=== PATIENT | male | born 1975 | race Caucasian/White ===

== ENCOUNTER 2020-07-28 20:39 | Observation (INO) | payer OTHER, SELFPAY ==
[2020-07-28] VITALS (28 sets, daily range): BP systolic 134–164; BP diastolic 83–116; PULSE 100–145; RESP 16–25; TEMP 35.9–37.1; O2SAT 94–100
--- NOTE | ~2020-07-28 | XR_ITS ---
EXAMINATION: XR chest 1V portable DATE: 07/28/2020 21:45 INDICATION: Shortness of breath and palpitations TECHNIQUE: frontal view of the chest was obtained. COMPARISON: None FINDINGS: The lungs are clear with no focal airspace opacities, pulmonary edema, pleural effusion or pneumothor ax. The cardiomediastinal silhouette is normal. Visualized bones and soft tissues are unremarkable. IMPRESSION: 1. No acute cardiopulmonary disease. Reviewed, dictated and finalized at location A.
--- NOTE | 2020-07-28 20:43 | ECG_ITS ---
Measurements Intervals [place] Rate: 144 P: [place]: 0 QRS: -7 QRSD: 93 T: 5 QT: 290 QTc: 449 Interpretive Statements SINUS TACHYCARDIA DELAYED PRECORDIAL R/S TRANSITION BASELINE ARTIFACT- II, III, AVF, V3-V6 ABNORMAL ECG Electronically Signed On 07-29-2020 6:51:36 CDT by Eulalio Hooper D.O.
[2020-07-28] MEDS: dilTIAZem HCl INJ 25 MG/5 ML VIAL 10 MG IV PUSH ×2 (21:36→22:44)
[2020-07-28] MEDS: ASPIRIN 81 MG CHEWABLE TABLET 324 MG PO (21:39)
[2020-07-28 21:49] LABS: Basophils Absolute Auto 0.2 K/mm3 (0.0-0.1); Basophils Percent Auto 1.6 % (0.2-1.2); Eosinophils Absolute Auto 0.1 K/mm3 (0-0.3); Eosinophils Percent Auto 0.5 % (0-4.4); Hematocrit 43.1 % (42.0-52.0); Hemoglobin 15.3 g/dL (14.0-18.0); Immature Granulocyte Absolute 0.06 K/mm3 (0.00-0.031); Immature Granulocyte Percent A 0.6 % (0-0.5); Lymphocytes Absolute Auto 1.89 K/mm3 (0.9-3.2); Lymphocytes Percent Auto 18.3 % (18.3-44.2); Mean Corpuscular HGB Conc 35.5 g/dl (32-36); Mean Corpuscular Hemoglobin 31.2 pg (26-34); Mean Corpuscular Volume 87.8 fl (80-100); Mean Platelet Volume 10.2 fl (7.4-10.4); Monocytes Absolute Auto 0.9 K/mm3 (0.1-0.6); Monocytes Percent Auto 8.7 % (2.6-8.5); Neutrophils Absolute Auto 7.3 K/mm3 (1.3-6.7); Neutrophils Percent Auto 70.3 % (45.5-73.1); Platelet Count Result 205 k/mm3 (150-375); Red Blood Count 4.91 M/mm3 (4.6-6.20); Red Cell Distribution Width 12.2 % (11.5-14.5); White Blood Count 10.3 K/mm3 (4.5-10.0)
[2020-07-28 21:57] LABS: Prothrombin Time 13.5 Seconds (11.1-14.7)
[2020-07-28 21:58] LABS: Partial Thromboplastin Time 32.5 SECONDS (22.3-36.8)
[2020-07-28 21:59] LABS: Alanine Aminotransferase 107 U/L (4-50); Albumin Level 4.7 g/dL (3.5-5.1); Alkaline Phosphatase 95 U/L (38-126); Anion Gap 9 mmol/L (8-16); Aspartate Amino Transferase 131 U/L (17-59); Bilirubin,Total 0.7 mg/dL (0.2-1.3); Blood Urea Nitrogen 16 mg/dL (9-20); Calcium 9.9 mg/dL (8.4-10.2); Carbon Dioxide 29 mmol/L (22-30); Chloride 102 mmol/L (98-107); Estimated CRCL calculation 118 ml/min; Estimated Glomerular Filt Rate > 60; Glucose 138 mg/dL (75-110); Potassium 3.5 mmol/L (3.4-5.0); Sodium 140 mmol/L (137-145)
[2020-07-28 22:11] LABS: NT Pro B Type Natriuretic Pept 70 pg/mL (5-100); Troponin I < 0.012 ng/mL (0.000-0.034)
--- NOTE | 2020-07-28 22:56 | PC.NURSE ---
Per EDP Lipsmeyer via verbal order read-back, increase Cardizem to 15mg/hr.
--- NOTE | 2020-07-28 23:05 | ECG_ITS ---
Measurements Intervals [place] Rate: 106 P: -3 [place]: 148 QRS: -8 QRSD: 90 T: 0 QT: 318 QTc: 423 Interpretive Statements SINUS TACHYCARDIA VOLTAGE CRITERIA FOR LVH BORDERLINE T WAVE ABNORMALITY- INFERIOR LEADS BASELINE ARTIFACT- II, III, AVF, V3-V6 ABNORMAL ECG Electronically Signed On 07-29-2020 6:54:55 CDT by Eulalio Hooper D.O.
[2020-07-28] MEDS: SODIUM CHLORIDE 0.9% IV 1,000 ML 999 ML IV CONT (23:28)
[2020-07-29] VITALS (20 sets, daily range): BP systolic 121–159; BP diastolic 72–90; PULSE 74–108; RESP 14–22; TEMP 37–37.1; O2SAT 94–98; BMI 34.0
--- NOTE | 2020-07-29 | ECHO_ITS ---
Patient Info Name: Jeevan Ness Age: 45 years : 1975 Gender: Male Ht: 73 in Wt: 257 lbs BSA: 2.49 m2 HR: 82 bpm BP: 121 / 72 mmHg Technical Quality: Good Exam Date: 07/29/2020 8:45 AM Exam Location: [facility] Patient Status: Outpatient Admit Date: 07/29/2020 Staff Ordering Physician: Stewart Maya MD Respiratory Therapist Assistant: Isac Gray RDCS, RT Attending Provider: Sangeeta Gorman PA-C Exam Type: CA echo doppler color flow Study Info Indications I48.1 - Persistent atrial fibrillation Complete two-dimensional, color flow and Doppler transthoracic echocardiogram is performed. Strain analysis performed. Summary 1. Complete two-dimensional, color flow and Doppler transthoracic echocardiogram is performed. 2. Left ventricular wall thickness is borderline increased. 3. Left ventricular chamber dimension is normal. 4. Left atrial chamber dimension is mildly enlarged. 5. Technically difficult study with limited views. 6. Left ventricular systolic function is normal with an estimated ejection fraction of 6065.0 %. 7. Right ventricular chamber dimension is mildly enlarged. 8. Right atrial chamber dimension is mildly enlarged. 9. The mitral valve has thickened leaflets. Left Ventricle Left ventricular wall thickness is borderline increased. Left ventricular chamber dimension is normal. Left ventricular systolic function is normal with an estimated ejection fraction of 6065.0 %. Normal diastolic function for age. Right Ventricle Right ventricular chamber dimension is mildly enlarged. Right ventricular systolic function is normal. Left Atria Left atrial chamber dimension is mildly enlarged. Right Atria Right atrial chamber dimension is mildly enlarged. Aortic Valve Aortic valve is not well visualized. Pulmonic Valve Pulmonary valve is not well visualized. Mitral Valve The mitral valve has thickened leaflets. Tricuspid Valve The tricuspid valve is structurally and functionally normal by two-dimensional, color flow Doppler and Doppler interrogation. Pericardium/Pleural Pericardium is normal in appearance with no evidence for significant pericardial effusion. Left Ventricular Outflow Tract Name Value Normal LVOT 2D LVOT Diameter 2.0 cm LVOT Doppler LVOT Peak Gradient 5 mmHg LVOT Mean Gradient 3 mmHg LVOT VTI 22 cm LVOT VTI/AV VTI Ratio 0.8 LVOT Stroke Volume 67 ml LVOT CO 5.4 l/min LVOT CI 2.2 l/min/m2 Mitral Valve Name Value Normal MV Doppler MV Decel Edmunds 451 cm/s2 MV PHT 42 ms MV Area (PHT) 5.2 cm2 4.0-5.0 M
--- NOTE | 2020-07-29 00:11 | ED.GENADULT ---
HPI - General Adult General Chief complaint: Arrhythmia/Palpitations Stated complaint: palpations Time Seen by Provider: 07/28/20 21:24 History of Present Illness HPI narrative: Patient is a 45-year-old gentleman who presents the emergency department with chief complaint of palpitations. Patient reports he was out walking his dog and had sudden onset where his heart started beating fast patient reports his heart rate was between 100 1560 bpm. Patient denied chest pain but did state he felt a little short of breath when this happened patient states it is more short of breath when her get up and walk. Upon arrival to the emergency department the patient still had a heart rate between 140 and 150. Patient states that resting comfortably on the stretcher he is not short of breath. Patient denies any travel denies any prior history of dysrhythmia or other medical problems other than hypertension. Related Data Home Medications Medication Instructions Recorded Confirmed amlodipine 07/28/20 benazepril 07/28/20 meloxicam 07/28/20 metoprolol succinate PO 07/28/20 spironolactone 07/28/20 Allergies Allergy/AdvReac Type Severity Reaction Status Date / Time No Known Allergies Allergy Unverified 03/14/16 12:29 Review of Systems Review of Systems: Narrative: A 10 system review of systems was completed on the patient and is negative except for what is stated in the HPI. Nursing and ancillary documentation was reviewed. PMFSH Comments Past medical history significant for hypertension Social history the patient reports to 1-2 caffeinated beverages per day denies energy drink use or other stimulant use Exam Narrative: Exam Narrative: GENERAL: Well-appearing, well-nourished, and in no acute distress. HEAD: Normocephalic, atraumatic. EYES: PERRLA and EOMI. ENT: Nares clear, no rhinorrhea or epistaxis. Mucous membranes moist. NECK: Supple. CHEST: Clear to auscultation. No respiratory distress. HEART: Regular rate and rhythm. No murmur heard. Normal peripheral pulses. ABDOMEN: Soft, nontender, nondistended, normal active bowel sounds. EXTREMITIES: Normal range of motion. No edema. SKIN: Warm, dry, no rash. NEURO: No focal deficits. Alert and oriented x3. PSYCH: Normal mood and affect. Course Course Emergency Course: Initial EKG showed a narrow complex tachycardia with a rate of 144 concerning for a flutter. After the patient has been on a Cardizem drip he is currently in a sinus tachycardia with a rate of 106 Vital Signs Vital signs: Vital Signs Temperature 35.9 C L 07/28/20 20:46 Pulse Rate 145 H 07/28/20 20:46 Respiratory Rate 18 07/28/20 20:46 Blood Pressure 164/104 H 07/28/20 20:46 Pulse Oximetry 100 07/28/20 20:46 Temperature 37.1 C 07/28/20 20:51 Pulse Rate 118 H 07/28/20 22:55 Respiratory Rate 23 H 07/28/20 22:31 Blood Pressure 140/84 07/28/20 22:55 Pulse Oximetry 94 07/28/20 22:31 Medical Decision Making Vital Signs Vital Signs: Vital Signs Temperature 35.9 C L 07/28/20 20:46 Pulse Rate 145 H 07/28/20 20:46 Respiratory Rate 18 07/28/20 20:46 Blood Pressure 164/104 H 07/28/20 20:46 Pulse Oximetry 100 07/28/20 20:46 Temperature 37.1 C 07/28/20 20:51 Pulse Rate 118 H 07/28/20 22:55 Respiratory Rate 23 H 07/28/20 22:31 Blood Pressure 140/84 07/28/20 22:55 Pulse Oximetry 94 07/28/20 22:31 Lab Data Result diagrams: 07/28/20 21:34 07/28/20 21:34 Labs: Lab Results 07/28/20 07/28/20 07/28/20 Range/Units 21:34 21:34 21:34 WBC 10.3 H (4.5-10.0) K/mm3 RBC 4.91 (4.6-6.20) M/mm3 Hgb 15.3 (14.0-18.0) g/dL Hct 43.1 (42.0-52.0) % MCV 87.8 (80-100) fl MCH 31.2 (26-34) pg MCHC 35.5 (32-36) g/dl RDW 12.2 (11.5-14.5) % Plt Count 205 (150-375) k/mm3 MPV 10.2 (7.4-10.4) fl Immature Gran % (Auto) 0.6 H (0-0.5) % Neut % (Auto) 70.3 (45.5-73.1) % Lym
--- NOTE | 2020-07-29 01:52 | ADMGEN ---
This patient, Jeevan Ness, was admitted to IMU Room 202-01. Patient/family oriented to hospital policies and general routines including ID bracelet, bed and alarms, visiting hours, pain management, procedures, bathroom and other care routines, personal items, smoking policy, room service/diet, and visiting hours. Information on how to activate the Rapid Response Team has been discussed. Patient/Family are encouraged to report perceived risks to care and to ask questions if they do not understand what they are told or what they should do. Leighton MOORE arrived [id number]
[2020-07-29] MEDS: SODIUM CHLORIDE 0.9% IV 1,000 ML 125 ML IV CONT (02:21)
[2020-07-29 03:48] LABS: Troponin I < 0.012 ng/mL (0.000-0.034)
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
[2020-07-29 06:29] LABS: Basophils Absolute Auto 0.1 K/mm3 (0.0-0.1); Basophils Percent Auto 1.2 % (0.2-1.2); Eosinophils Absolute Auto 0.1 K/mm3 (0-0.3); Eosinophils Percent Auto 1.2 % (0-4.4); Hematocrit 36.2 % (42.0-52.0); Hemoglobin 12.9 g/dL (14.0-18.0); Immature Granulocyte Absolute 0.04 K/mm3 (0.00-0.031); Immature Granulocyte Percent A 0.5 % (0-0.5); Lymphocytes Absolute Auto 2.16 K/mm3 (0.9-3.2); Lymphocytes Percent Auto 26.5 % (18.3-44.2); Mean Corpuscular HGB Conc 35.6 g/dl (32-36); Mean Platelet Volume 10.1 fl (7.4-10.4); Monocytes Percent Auto 12.3 % (2.6-8.5); Neutrophils Absolute Auto 4.8 K/mm3 (1.3-6.7); Neutrophils Percent Auto 58.3 % (45.5-73.1); Platelet Count Result 175 k/mm3 (150-375); Red Blood Count 4.16 M/mm3 (4.6-6.20); Red Cell Distribution Width 12.3 % (11.5-14.5); White Blood Count 8.2 K/mm3 (4.5-10.0)
[2020-07-29 06:43] LABS: Alanine Aminotransferase 71 U/L (4-50); Albumin Level 3.8 g/dL (3.5-5.1); Alkaline Phosphatase 69 U/L (38-126); Anion Gap 3 mmol/L (8-16); Aspartate Amino Transferase 75 U/L (17-59); Bilirubin,Total 0.6 mg/dL (0.2-1.3); Blood Urea Nitrogen 19 mg/dL (9-20); Calcium 8.6 mg/dL (8.4-10.2); Carbon Dioxide 29 mmol/L (22-30); Chloride 105 mmol/L (98-107); Estimated CRCL calculation 133 ml/min; Estimated Glomerular Filt Rate > 60; Glucose 95 mg/dL (75-110); Magnesium 1.4 mg/dL (1.6-2.3); Potassium 3.5 mmol/L (3.4-5.0); Sodium 137 mmol/L (137-145)
[2020-07-29 07:28] LABS: D Dimer 0.42 ug/mL (<0.48)
[2020-07-29] MEDS: ENOXAPARIN 40 MG/0.4 ML SYRINGE SUB-Q (08:07)
[2020-07-29] MEDS: amLODIPine BESYLATE 5 MG TABLET 10 MG PO (08:10)
[2020-07-29] MEDS: METOPROLOL SUCCINATE EXT REL 100 MG TABCR PO (08:10)
[2020-07-29] MEDS: SPIRONOLACTONE 25 MG TABLET PO (08:10)
[2020-07-29] MEDS: lisinopriL 20 MG TABLET 40 MG PO (08:10)
[2020-07-29] MEDS: ASPIRIN 81 MG CHEWABLE TABLET PO (08:10)
[2020-07-29] MEDS: MAGNESIUM SULF 2 GM/WATER 50ML 2 GM/50 ML BAG IVPB (08:10)
[2020-07-29] MEDS: MELOXICAM 7.5 MG TABLET 15 MG PO (08:10)
[2020-07-29 08:38] LABS: Troponin I < 0.012 ng/mL (0.000-0.034)
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
--- NOTE | 2020-07-29 09:50 | PM.DS ---
DS: Admitting Diagnosis Admitting Diagnosis Admitting Diagnosis: aflutter DS: Discharge Diagnosis Discharge Diagnosis (1) Atrial flutter with rapid ventricular response: Code(s): I48.92 - Unspecified atrial flutter Status: Acute Assessment and Plan: A flutter noted by Cardiology and rate was controlled with Cardizem drip -he was transition to Cardizem oral and placed on Xarelto -he was given a prescription card for the 1st month of Xarelto and is going to follow up with Cardiology thereafter -echo Cardiology which showed a normal EF of 60-65% -follow-up with cardiology outpatient - limit caffeine and alcohol intake -CHADS2 Vasc score is 1 (2) Palpitations: Code(s): R00.2 - Palpitations Status: Acute Assessment and Plan: As above -D-dimer negative, PE seems less likely since patient does not have any shortness of breath or evidence of right heart strain (3) Hypertension: Code(s): I10 - Essential (primary) hypertension Status: Chronic Assessment and Plan: blood pressure 134/72 -continue benazepril, metoprolol, spironolactone and add Cardizem. Amlodipine has been stopped (4) Osteoarthritis: Code(s): M19.90 - Unspecified osteoarthritis, unspecified site Status: Chronic Assessment and Plan: Will stop meloxicam due to Xarelto. Patient educated on this (5) Transaminitis: Code(s): R74.01 - Elevation of levels of liver transaminase levels Status: Acute DS: Summary Hospital Course Hospital Course: Patient is a 45-year-old male with a history of hypertension who presented emergency room for palpitations and elevated heart rate reported on his watch. The patient had no chest pain with this but did have a little shortness of breath that quickly resolved. He drinks multiple sodas a day. Vitals in the ER were temperature 35.9? C, pulse 145, respiratory rate 18, blood pressure 164/104, pulse ox 100 on room air. EKG showed narrow complex tachycardia concerning for a flutter and he was started on a Cardizem drip. He was admitted to the hospitalist service for observation and did well on the drip. He was able to be transition to oral Cardizem and his rate was 74 at discharge. He had negative troponins x3, no chest pain, and an echocardiogram which revealed a normal EF without any wall motion abnormalities. His CHADS2 Vasc score was 1 but Cardiology recommended Xarelto. His magnesium was also little low which was supplemented. Patient had no recurrence of a flutter and no chest pain. His D-dimer was negative, no PE was suspected. We also spoke about his elevated liver enzymes. He is overweight but does not have any history of hepatitis. He sees his primary care physician Dr. Negron and would like to follow-up with him with this. Since they are improving, I do believe outpatient workup for this is warranted. I will redraw him 2 weeks after discharge and if they are still elevated, he should consider getting a hepatitis screen as well as a right upper quadrant ultrasound. Patient agrees to this. All-in-all, the patient was feeling back to baseline at the day of discharge. He was educated to limit his alcohol and caffeine intake. He was also educated on the affects of anticoagulation and to avoid NSAIDs with this. He was educated about the worrisome signs and symptoms come back to emergency room for was discharged stable condition to follow-up with primary care physician and animal handler. Time Spent with Patient Time attestation: Total time spent providing and/or coordinating discharge services:38 min Time spent: Greater than 30 minutes Exam Narrative: Exam Narrative: General: Well developed well nourished patient in NAD HEENT: normocephalic Neck: supple Neuro: Alert and oriented x4 CV:RRR on exam. Telemetry shows occasional tachycardia that appears to be sinus up to 120 but no SVT or a flutter noted again Resp:CTA Abd: Sof
[2020-07-29] MEDS: POTASSIUM CHLORIDE 20 MEQ PACKET (FOR LIQUID) 40 MEQ PO (11:36)
== END 2020-07-29 13:18 | disposition home or self-care (01) ==
LOC: ANHED 07-29 00:24 → ANHIMU 07-29 00:57
PROVIDERS: Nurse Practitioner; Physician Assistant; Admitting Provider Family Medicine; Emergency Provider Emergency Medicine; PCP Internal Medicine; Visit Provider Internal Medicine
DX: I48.92 Unspecified atrial flutter (principal); R00.2 Palpitations; I10 Essential (primary) hypertension; R74.01 Elevation of levels of liver transaminase levels; F17.290 Nicotine dependence, other tobacco product, uncomplicated; Z79.899 Other long term (current) drug therapy; R06.02 Shortness of breath
CPT/HCPCS: 36415; 71045; 80053; 83735; 83880; 84443; 84484; 85025; 85380; 85610; 85730; 93005; 93306; 96361; 96365; 96372; 96374; 99285; A9270; G0378; J1650; J3475; J7030

== ENCOUNTER 2020-08-01 00:17 | Emergency (ER) | payer OTHER, SELFPAY ==
--- NOTE | ~2020-08-01 | XR_ITS ---
EXAMINATION: XR chest 2V DATE: 08/01/2020 00:52 INDICATION: Palpitations. Shortness of breath. TECHNIQUE: Frontal and lateral views of the chest were obtained. COMPARISON: Chest single view 07/28/2020 FINDINGS: There is mild atelectasis in right lower lung zone. No pleural effusion or pneumothorax. Th e heart size is normal. IMPRESSION: 1. Mild atelectasis in right lower lung zone. Reviewed, dictated and finalized at location A.
[2020-08-01 00:22] VITALS: BP 153/99; PULSE 115; RESP 20; TEMP 36.9; O2SAT 100
--- NOTE | 2020-08-01 00:25 | ECG_ITS ---
Measurements Intervals [place] Rate: 107 P: -8 [place]: 140 QRS: -6 QRSD: 105 T: 15 QT: 315 QTc: 420 Interpretive Statements SINUS TACHYCARDIA VOLTAGE CRITERIA FOR LVH BASELINE WANDER- II, III ABNORMAL ECG Electronically Signed On 08-01-2020 7:34:14 CDT by Eulalio Hooper D.O.
[2020-08-01 00:48] LABS: Basophils Absolute Auto 0.2 K/mm3 (0.0-0.1); Basophils Percent Auto 1.4 % (0.2-1.2); Eosinophils Absolute Auto 0.2 K/mm3 (0-0.3); Eosinophils Percent Auto 1.9 % (0-4.4); Hematocrit 42.2 % (42.0-52.0); Hemoglobin 14.7 g/dL (14.0-18.0); Immature Granulocyte Absolute 0.05 K/mm3 (0.00-0.031); Immature Granulocyte Percent A 0.5 % (0-0.5); Lymphocytes Absolute Auto 1.95 K/mm3 (0.9-3.2); Lymphocytes Percent Auto 17.6 % (18.3-44.2); Mean Corpuscular HGB Conc 34.8 g/dl (32-36); Mean Corpuscular Hemoglobin 31.2 pg (26-34); Mean Corpuscular Volume 89.6 fl (80-100); Mean Platelet Volume 9.9 fl (7.4-10.4); Neutrophils Absolute Auto 7.7 K/mm3 (1.3-6.7); Neutrophils Percent Auto 69.6 % (45.5-73.1); Platelet Count Result 201 k/mm3 (150-375); Red Blood Count 4.71 M/mm3 (4.6-6.20); Red Cell Distribution Width 12.1 % (11.5-14.5); White Blood Count 11.1 K/mm3 (4.5-10.0)
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
[2020-08-01 01:01] LABS: Anion Gap 8 mmol/L (8-16); Blood Urea Nitrogen 24 mg/dL (9-20); Calcium 9.8 mg/dL (8.4-10.2); Carbon Dioxide 26 mmol/L (22-30); Chloride 103 mmol/L (98-107); Estimated CRCL calculation 132 ml/min; Estimated Glomerular Filt Rate > 60; Glucose 119 mg/dL (75-110); Potassium 3.8 mmol/L (3.4-5.0); Sodium 137 mmol/L (137-145)
[2020-08-01 01:13] LABS: Troponin I < 0.012 ng/mL (0.000-0.034)
[2020-08-01 01:19] LABS: INR 1.5; Prothrombin Time 18.9 Seconds (11.1-14.7)
[2020-08-01 01:21] LABS: Partial Thromboplastin Time 36.1 SECONDS (22.3-36.8)
[2020-08-01 01:22] VITALS: BP 127/99; PULSE 94; RESP 20; O2SAT 99
[2020-08-01 01:43] LABS: Troponin I < 0.012 ng/mL (0.000-0.034)
[2020-08-01] MEDS: ASPIRIN 81 MG CHEWABLE TABLET 324 MG PO (02:02)
[2020-08-01] MEDS: dilTIAZem HCl INJ 25 MG/5 ML VIAL 10 MG IV PUSH (02:03)
[2020-08-01 03:07] VITALS: BP 135/89; PULSE 67; RESP 18; O2SAT 97
== END 2020-08-01 03:10 | disposition home or self-care (01) ==
PROVIDERS: Emergency Provider Emergency Medicine; PCP Internal Medicine
DX: R07.89 Other chest pain (principal); R00.2 Palpitations; I10 Essential (primary) hypertension; M19.90 Unspecified osteoarthritis, unspecified site; F17.220 Nicotine dependence, chewing tobacco, uncomplicated; R00.0 Tachycardia, unspecified; R94.31 Abnormal electrocardiogram [ECG] [EKG]
CPT/HCPCS: 36415; 71046; 80048; 84484; 85025; 85610; 85730; 93005; 96374; 99284; A9270

== ENCOUNTER 2020-09-03 13:50 | Emergency (ER) | payer OTHER, SELFPAY ==
[2020-09-03] VITALS (11 sets, daily range): BP systolic 123–145; BP diastolic 65–100; PULSE 89–137; RESP 17–22; TEMP 35.8; O2SAT 95–100
--- NOTE | ~2020-09-03 | XR_ITS ---
EXAMINATION: XR chest 2V DATE: 09/03/2020 14:15 INDICATION: Left-sided chest pain. Tachycardia. TECHNIQUE: AP and lateral views of the chest were obtained. COMPARISON: Chest radiograph dated 08/01/2020 FINDINGS: The lungs are clear with no focal airspace opacities, pulmonary edema, pleural effusion or pneumothor ax. The cardiomediastinal silhouette is normal. Mild thoracic spondylosis. IMPRESSION: 1. No acute cardiopulmonary disease. Reviewed, dictated and finalized at location A.
--- NOTE | 2020-09-03 13:53 | ECG_ITS ---
Measurements Intervals [place] Rate: 134 P: 52 MD: 157 QRS: -4 QRSD: 94 T: 10 QT: 291 QTc: 436 Interpretive Statements SINUS TACHYCARDIA DELAYED PRECORDIAL R/S TRANSITION BORDERLINE T WAVE ABNORMALITY- INFERIOR LEADS ABNORMAL ECG Electronically Signed On 09-03-2020 15:52:14 CDT by Eulalio Hooper D.O.
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
[2020-09-03] MEDS: SODIUM CHLORIDE 0.9% IV 1,000 ML 999 ML IV CONT (14:09)
[2020-09-03] MEDS: ASPIRIN 81 MG CHEWABLE TABLET 324 MG PO (14:09)
[2020-09-03] MEDS: METOPROLOL TARTRATE INJ 5 MG/5 ML VIAL IV PUSH (14:09)
[2020-09-03 14:12] LABS: Basophils Absolute Auto 0.2 K/mm3 (0.0-0.1); Eosinophils Absolute Auto 0.1 K/mm3 (0-0.3); Eosinophils Percent Auto 0.7 % (0-4.4); Hematocrit 41.3 % (42.0-52.0); Hemoglobin 15.1 g/dL (14.0-18.0); Immature Granulocyte Absolute 0.04 K/mm3 (0.00-0.031); Immature Granulocyte Percent A 0.4 % (0-0.5); Lymphocytes Absolute Auto 1.97 K/mm3 (0.9-3.2); Mean Corpuscular HGB Conc 36.6 g/dl (32-36); Mean Corpuscular Hemoglobin 30.9 pg (26-34); Mean Corpuscular Volume 84.5 fl (80-100); Mean Platelet Volume 9.6 fl (7.4-10.4); Monocytes Absolute Auto 0.8 K/mm3 (0.1-0.6); Monocytes Percent Auto 8.6 % (2.6-8.5); Neutrophils Absolute Auto 6.3 K/mm3 (1.3-6.7); Neutrophils Percent Auto 67.3 % (45.5-73.1); Platelet Count Result 247 k/mm3 (150-375); Red Blood Count 4.89 M/mm3 (4.6-6.20); Red Cell Distribution Width 11.5 % (11.5-14.5); White Blood Count 9.4 K/mm3 (4.5-10.0)
[2020-09-03 14:21] LABS: Anion Gap 16 mmol/L (8-16); Blood Urea Nitrogen 9 mg/dL (9-20); Calcium 10.3 mg/dL (8.4-10.2); Carbon Dioxide 19 mmol/L (22-30); Chloride 101 mmol/L (98-107); Estimated CRCL calculation 131 ml/min; Estimated Glomerular Filt Rate > 60; Glucose 115 mg/dL (75-110); Potassium 3.8 mmol/L (3.4-5.0); Sodium 136 mmol/L (137-145)
[2020-09-03 14:34] LABS: Prothrombin Time 13.3 Seconds (11.1-14.7)
[2020-09-03 14:35] LABS: Partial Thromboplastin Time 28.9 SECONDS (22.3-36.8)
[2020-09-03 14:39] LABS: Troponin I < 0.012 ng/mL (0.000-0.034)
== END 2020-09-03 16:35 | disposition home or self-care (01) ==
PROVIDERS: Emergency Medicine; Emergency Provider Emergency Medicine; PCP Internal Medicine
DX: R00.2 Palpitations (principal); R00.0 Tachycardia, unspecified; I48.91 Unspecified atrial fibrillation; I10 Essential (primary) hypertension; M19.90 Unspecified osteoarthritis, unspecified site; Z79.82 Long term (current) use of aspirin; F17.220 Nicotine dependence, chewing tobacco, uncomplicated; R94.31 Abnormal electrocardiogram [ECG] [EKG]; Z79.01 Long term (current) use of anticoagulants
CPT/HCPCS: 36415; 71046; 80048; 84484; 85025; 85610; 85730; 93005; 96361; 96374; 99284; A9270; J7030

== ENCOUNTER 2021-04-28 20:11 | Emergency (ER) | payer OTHER, SELFPAY ==
--- NOTE | ~2021-04-28 | XR_ITS ---
XR chest 2V DATE: 04/28/2021 20:42 INDICATION: Hypertension TECHNIQUE: 2 views COMPARISON: 09/03/2020 2 view chest FINDINGS: Normal heart size. Mild aortic unfolding. No hilar or mediastinal enlargement. No pulmonary infiltrate or consolidation, pleural effusion or pulmonary vascular congestion or pneumothorax. IMPRESSION: No active cardiopulmonary disease or significant change since 09/03/2020 Reviewed, dictated and finalized at location A. SCOURER IMPRESSION: No active cardiopulmonary disease or significant change since 021
[2021-04-28 20:31] VITALS: BP 185/112; PULSE 64; RESP 16; TEMP 36.6; O2SAT 99
[2021-04-28] MEDS: hydrALAZINE HCL 20 MG/ML VIAL 10 MG IV PUSH (22:59)
[2021-04-28 23:01] VITALS: PULSE 62; RESP 14; O2SAT 100
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
[2021-04-28 23:33] LABS: Basophils Absolute Auto 0.1 K/mm3 (0.0-0.1); Basophils Percent Auto 1.5 % (0.2-1.2); Eosinophils Absolute Auto 0.2 K/mm3 (0-0.3); Eosinophils Percent Auto 2.3 % (0-4.4); Hematocrit 37.8 % (42.0-52.0); Hemoglobin 13.1 g/dL (14.0-18.0); Immature Granulocyte Absolute 0.03 K/mm3 (0.00-0.031); Immature Granulocyte Percent A 0.3 % (0-0.5); Lymphocytes Absolute Auto 1.79 K/mm3 (0.9-3.2); Mean Corpuscular HGB Conc 34.7 g/dl (32-36); Mean Corpuscular Hemoglobin 30.7 pg (26-34); Mean Corpuscular Volume 88.5 fl (80-100); Mean Platelet Volume 10.4 fl (7.4-10.4); Monocytes Absolute Auto 0.7 K/mm3 (0.1-0.6); Monocytes Percent Auto 8.2 % (2.6-8.5); Neutrophils Absolute Auto 6.1 K/mm3 (1.3-6.7); Neutrophils Percent Auto 67.7 % (45.5-73.1); Platelet Count Result 177 k/mm3 (150-375); Red Blood Count 4.27 M/mm3 (4.6-6.20); Red Cell Distribution Width 12.9 % (11.5-14.5); White Blood Count 8.9 K/mm3 (4.5-10.0)
[2021-04-28 23:45] LABS: Alanine Aminotransferase 35 U/L (4-50); Albumin Level 4.6 g/dL (3.5-5.1); Alkaline Phosphatase 82 U/L (38-126); Anion Gap 7 mmol/L (8-16); Aspartate Amino Transferase 39 U/L (17-59); Bilirubin,Total 0.6 mg/dL (0.2-1.3); Blood Urea Nitrogen 21 mg/dL (9-20); Calcium 9.6 mg/dL (8.4-10.2); Carbon Dioxide 29 mmol/L (22-30); Chloride 101 mmol/L (98-107); Estimated CRCL calculation 114 ml/min; Estimated Glomerular Filt Rate > 60; Glucose 96 mg/dL (65-110); Potassium 4.2 mmol/L (3.4-5.0); Sodium 137 mmol/L (137-145)
[2021-04-28 23:51] LABS: Magnesium 1.7 mg/dL (1.6-2.3)
[2021-04-28 23:55] VITALS: BP 157/96; PULSE 67; RESP 17; O2SAT 100
[2021-04-29 00:13] LABS: Add Urine Microscopic? NO; Appearance Urine Clear (Clear); Bilirubin Urine Negative (Negative); Blood Urine Negative (Negative); Color Urine Yellow (Yellow); Glucose Urine UA Negative (Negative); Ketones Urine Negative (Negative); Leukocyte Esterase Ur Negative LEU/UL (Negative); Nitrate Urine Negative (Negative); Protein Urine Negative (Negative); Specific Grav Ur 1.012 (1.001-1.035); Urobilinogen Urine Negative mg/dL (<2.0)
[2021-04-29 00:40] VITALS: BP 151/89; PULSE 66; RESP 15; O2SAT 100
== END 2021-04-29 00:42 | disposition home or self-care (01) ==
PROVIDERS: Emergency Provider Emergency Medicine; PCP Internal Medicine
DX: I10 Essential (primary) hypertension (principal); M19.90 Unspecified osteoarthritis, unspecified site; Z79.82 Long term (current) use of aspirin; F17.220 Nicotine dependence, chewing tobacco, uncomplicated
CPT/HCPCS: 36415; 71046; 80053; 81003; 83735; 85025; 96374; 99284; J0360

== ENCOUNTER 2021-08-31 19:34 | Emergency (ER) | payer OTHER, SELFPAY ==
[2021-08-31] VITALS (9 sets, daily range): BP systolic 141–143; BP diastolic 48–86; PULSE 84–92; RESP 16–25; TEMP 37.2; O2SAT 96–99
--- NOTE | ~2021-08-31 | XR_ITS ---
XR chest 1V portable 08/31/2021 20:32 Indication: Shortness of breath Procedure: AP portable chest Comparison: Comparison to multiple prior studies sequentially, with oldest reviewed study dated 07/28. Findings: There are interstitial infiltrates of the mid and lower lungs. No pleural effusion. Heart s ize normal. No pneumothorax. No acute osseous abnormality. Impression: 1: Interstitial infiltrates of the mid and lower lungs which may reflect mild edema or pneumonia. Reviewed, dictated and finalized at location A. Impression: 1: Interstitial infiltrates of the mid and lower lungs which may reflect mild e gracie or pneumonia.
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
[2021-08-31 21:16] LABS: Influenza A QL RT-PCR Negative (Negative); Influenza B QL RT-PCR Negative (Negative); SARS-CoV-2 RNA PCR Positive
== END 2021-08-31 21:54 | disposition home or self-care (01) ==
PROVIDERS: Emergency Provider Nurse Practitioner Family; PCP Internal Medicine
DX: U07.1 COVID-19 (principal); J12.82 Pneumonia due to coronavirus disease 2019; I10 Essential (primary) hypertension; M19.90 Unspecified osteoarthritis, unspecified site; F17.220 Nicotine dependence, chewing tobacco, uncomplicated
CPT/HCPCS: 71045; 87502; 99283; C9803; U0003; U0005